=== PATIENT | male | born 1950 | race Caucasian/White ===

== ENCOUNTER → 2018-01-24 | Outpatient (CLI) | payer MEDICARE, OTHER | LOC: M.RAD 01-17 17:04 → M.ULTRA 08:40 | DX: Z13.6 Encounter for screening for cardiovascular disorders (principal); M81.0 Age-related osteoporosis without current pathological fracture; D71 Functional disorders of polymorphonuclear neutrophils; I10 Essential (primary) hypertension; F17.201 Nicotine dependence, unspecified, in remission ==